=== PATIENT | male | born 1950 | race Caucasian/White ===

== ENCOUNTER 2017-02-06 09:09 | Day surgery (SDC) | payer OTHER ==
[~2017-02-06] VITALS: Ht 160 cm; Wt 103.5 kg
[2017-02-06 10:11] VITALS: Ht 160 cm; Wt 103.5 kg
[2017-02-06] MEDS ORDERED: ATOR40TA68 PO (10:19)
[2017-02-06] MEDS ORDERED: METF500T4 PO (10:19)
[2017-02-06] MEDS ORDERED: [UNRECOGNIZED DRUG - CODE] PO (10:19)
[2017-02-06] MEDS ORDERED: MELO7.5O PO (10:19)
[2017-02-06] MEDS ORDERED: LISI10TA2 PO (10:19)
[2017-02-06] MEDS ORDERED: TAMS0.4C2 PO (10:19)
[2017-02-06 10:56] VITALS: BP 136/76; PULSE 93; RESP 16
[2017-02-06] MEDS ORDERED: LIDOCAINE 2% (SDV) 5 ML INJ ONE (11:10)
[2017-02-06] MEDS ORDERED: PROPOFOL 60 ML ONE (11:10)
--- NOTE | 2017-02-11 09:32 | GILP ---
DATE OF PROCEDURE: 02/06/2017 PROCEDURE PERFORMED: Colonoscopy and biopsy. SURGEON: Ese Calixto MD PREOPERATIVE DIAGNOSIS: Screening colonoscopy. POSTOPERATIVE DIAGNOSES: 1. Colonoscopy all the way to the cecum. 2. Two small colon polyps were removed using the biopsy forceps. 3. Mild diverticulosis of the colon. 4. Internal hemorrhoids. INDICATION: Mr. Tata Martinez is a 66-year-old male patient who is scheduled for screening colonoscopy. The procedure and possible complications were well explained to the patient. He understood and consented to the procedure. DESCRIPTION OF PROCEDURE: Under the influence of anesthesia, the colonoscope was carefully introduced in the rectum and, under direct vision, it was advanced all the way to the cecum. FINDINGS: The patient was noted to have 2 small sigmoid colon polyps, and they were removed using the biopsy forceps. He had internal hemorrhoids. He was also noted to have mild diverticulosis of the colon. He tolerated the procedure very well, and there were no complications from the procedure. At the end of the procedure, he was awake with stable vital signs and he was discharged home in the care of his family. IMPRESSION: Please see postoperative diagnoses. PLAN: 1. Await histopathology report. 2. Next screening colonoscopy in 10 years. Dictated By: MD FLORENCE Hurtado/artem/jose ramon /Document#: [id number]
== END 2017-02-06 16:42 | disposition home or self-care (01) ==
LOC: GIL 09:09
PROVIDERS: ATTEND Internal Medicine Gastroenterology
DX: Z12.11 Encounter for screening for malignant neoplasm of colon (principal); K63.5 Polyp of colon; K57.30 Diverticulosis of large intestine without perforation or abscess without bleeding; K64.8 Other hemorrhoids; E78.5 Hyperlipidemia, unspecified; E11.9 Type 2 diabetes mellitus without complications; I10 Essential (primary) hypertension
CPT/HCPCS: 45380; 82962; 88305; Z7610

== ENCOUNTER 2017-05-19 09:00 | Day surgery (SDC) | payer MEDICARE, OTHER ==
--- NOTE | 2017-05-18 15:37 | PREOPHP ---
DATE OF ADMISSION: 05/19/2017 HISTORY OF PRESENT ILLNESS: This 66-year-old patient is admitted for elective excision of a pterygi um of the right eye. The patient has had a history of decreasing vision primarily in the right eye over the last 1 to 2 years without prior history of eye disease or injury. The patient does have a history of ctk-ewmgudy-nszemkqyl diabetes mellitus, systemic hypertension and benign prostatic hyper trophy. CURRENT MEDICATIONS INCLUDE: 1. Metformin. 2. Glipizide. 3. Amlodipine. 4. Atorvastatin. 5. Lisinopril. 6. Tamsulosin. ALLERGIES: THERE ARE NO KNOWN ALLERGIES. PHYSICAL EXAMINATION: The visual acuity best corrected is 20/50 in the right eye and 20/30 in the l eft eye. Slit lamp examination reveals a large nasal pterygium extending into the pupillary and vis ual access in the right eye. The patient also has moderate nuclear sclerotic cataracts present in b oth eyes. Applanation tonometry is 17 mmHg. Examination of the retina is within normal limits with out evidence of diabetic retinopathy. DIAGNOSIS: Visually significant pterygium, right eye. PLAN: Pterygium excision with mitomycin C application and conjunctival graft, right eye. The risks and alternatives to the surgery have been discussed with the patient as well as the significant pos sibility of recurrence of pterygium formation. The patient understands this and agrees to proceed w ith surgery in hopes of achieving improved visual acuity leading to a greater ability to perform act ivities of daily living. Dictated By: KYLER CARTAGENA/KAROL Conf#: [id number] DID#: [id number]
[~2017-05-19] VITALS: Ht 162.6 cm; Wt 104.0 kg
[2017-05-19] VITALS (8 sets, daily range): BP systolic 105–160; BP diastolic 60–86; PULSE 64–80; RESP 12–20; Ht 162.6 cm; Wt 104.0 kg
[~2017-05-19 09:00] MED LIST: ATOR40TA68 PO; BALANCED SALT SOLN 15 ML OPH IRRIG ONE; CIPROFLOXACIN 0.3% 2.5 ML OPH OPER SCH; CYCLOPENTOLATE/PHENYLEPH 2 ML OPH OPER SCH; DICLOFENAC 0.1% 2.5 ML OPH OPER SCH; FENTAnyl 50 MCG/ML VIAL IV PRN; LABETALOL HCL 20MG INJ IV PRN; LISI10TA2 PO; MELO7.5O PO; METF500T4 PO; ONDANSETRON 4 MG INJ IV PRN; OXYCODONE/ACETAMINOPHEN (5/325) TAB PO PRN; SOD CHLORIDE 0.9% 1,000 ML IV SCH; TAMS0.4C2 PO; TROPICAMIDE 1% 2 ML OPH OPER SCH; [UNRECOGNIZED DRUG - CODE] PO
[2017-05-19] MEDS ORDERED: FENTAnyl 50 MCG/ML VIAL ONE (09:32)
[2017-05-19] MEDS ORDERED: LIDOCAINE 2% (SDV) 5 ML INJ ONE (09:33)
[2017-05-19] MEDS ORDERED: PROPOFOL 20 ML ONE (09:33)
[2017-05-19] MEDS ORDERED: METF500T4 PO (09:44)
[2017-05-19] MEDS ORDERED: MITOMYCIN 5 MG INJ OP ONE (11:00)
[2017-05-19] MEDS ORDERED: LIDOCAINE 2%/EPI 30 ML INJ ONE (11:01)
[2017-05-19] MEDS ORDERED: TETRACAINE 0.5% 4 ML OPH ONE (11:01)
[2017-05-19] MEDS ORDERED: TOBRAMYCIN/DEXAMETH 3.5 GM OPH OINT ONE (11:01)
[2017-05-19] MEDS ORDERED: MIDAZOLAM 1 MG/ML 2 ML INJ ONE (11:23)
[2017-05-19] MEDS ORDERED: LIDOCAINE 2%/EPI (MDV) 20ML INJ INJ ONE (11:25)
[2017-05-19] MEDS ORDERED: TOBRAMYCIN/DEXAMETH 3.5 GM OPH OINT RIGHT EYE ONE (11:26)
[2017-05-19] MEDS ORDERED: ONDANSETRON 4 MG INJ ONE (11:36)
--- NOTE | 2017-05-19 12:07 | SIPON ---
Date/Time of Note Date/Time of Note DATE: 05/19/17 TIME: 12:06 Operative Report Preoperative Diagnosis pterygium od Postoperative Diagnosis same Operation/Procedure Performed pterygium excision with conjunctival graft od Surgeon Raquel Brizuela radiology physician assistant none Anesthesia: MAC Estimated blood loss: none Transfusion Required none Specimen pterygium Grafts/Implants none Complications none KYLER BRIZUELA MD May 19, 2017 12:07
--- NOTE | 2017-05-19 13:34 | OPR ---
DATE OF OPERATION: 05/19/2017 PREOPERATIVE DIAGNOSIS: Pterygium, right eye. POSTOPERATIVE DIAGNOSIS: Pterygium, right eye. OPERATION PERFORMED: Pterygium excision with mitomycin C application and rotating conjunctival faby t, right eye. SURGEON: Kyler Morales MD ANESTHESIA: Avelino Thomas CRNA. DESCRIPTION OF PROCEDURE: The patient was brought to the operating room on an eye gurney, positione d appropriately, attached to electrocardiogram monitor, given oxygen via nasal cannula. The patient was then prepped and draped in the usual sterile manner and then local anesthesia was obtained usin g lidocaine 2% with epinephrine given in a lid block injection at the lateral canthus, as well as faulkner bconjunctival injection beneath the bed of the pterygium. A speculum was inserted between the lids of the right eye and then using Vannas scissors, the tail of the pterygium was incised and was disse cted towards the corneoscleral limbus in the nasal quadrant. Then, using a curved blade, the pteryg ium was dissected off of the surface of the cornea until it was removed en bloc and submitted for gr oss pathological examination. A jerry tipped bur was used to uk[place] the corneal bed of the pterygium until a smooth surface was present. Hemostasis was obtained by means of cautery application to the sclera in the nasal quadran t. After this was completed, a Weck-Twila sponge impregnated with mitomycin C 0.03% was applied to th e exposed scleral surface and left there for 1 minute. Following this, copious irrigation with maxine nced salt solution was performed to remove all of the mitomycin C. After this had been completed, a Vannas scissors was used to dissect the superior conjunctival insertion into the corneoscleral limb us from the 11 o'clock to the 1 o'clock position and then extend the incision in the superotemporal quadrant superiorly for approximately 5 mm, and then incise that flap of conjunctiva back towards th e nasal quadrant in order to create a tongue of conjunctival tissue, which could be rotated to cover the pterygium bed and the exposed sclerae. Once this was done, 5 sutures of 6-0 Vicryl were placed in interrupted fashion to attach the conjunc tival graft to the adjacent inferior and nasal conjunctiva. The ends were cut short. When this was completed and it was noted that there was complete coverage of the exposed sclera, and hemostasis w as present, the speculum was removed. Maxitrol ointment was placed on the surface of the eye and th e eye received a pressure patch. The patient then left the operating room in satisfactory condition . Dictated By: KYLER CARTAGENA/KAROL Conf#: [id number] DID#: [id number]
== END 2017-05-19 13:01 | disposition home or self-care (01) ==
LOC: SDS 09:00
PROVIDERS: ATTEND Ophthalmology
DX: H11.001 Unspecified pterygium of right eye (principal); E11.9 Type 2 diabetes mellitus without complications
CPT/HCPCS: 82962; J2250; J2405; J3010; J9280